=== PATIENT | female | born 1965 | race Two or more races ===

== ENCOUNTER 2020-12-31 04:27 | Day surgery (SDC) | payer OTHER ==
[2020-12-31 08:25] VITALS: BMI 31.2
[2020-12-31] MEDS ORDERED: LIDOCAINE HCL 1%, 10 MG/ML (20ML VIAL) ONE (10:06)
[2020-12-31] MEDS ORDERED: PROPOFOL 20 ML ONE (11:17)
[2020-12-31] MEDS ORDERED: MIDAZOLAM HCL 2 MG/2 ML SINGLE DOSE VIAL ONE (11:17)
[2020-12-31] MEDS ORDERED: ceFAZolin SODIUM 1 GM VIAL IVPB ONE (11:25)
[2020-12-31] MEDS ORDERED: LIDOCAINE HCL 1%, 10 MG/ML (20ML VIAL) NR ONE ×2 (11:31)
[2020-12-31] MEDS ORDERED: EPHEDRINE SULFATE/0.9% NACL/PF 50 MG/10 ML SYRINGE NR ONE (11:32)
[2020-12-31] MEDS ORDERED: oxyCODONE HCL 5 MG TABLET PO PRN (13:15)
[2020-12-31] MEDS ORDERED: ONDANSETRON 4 MG/2 ML VIAL IVPUSH PRN (13:15)
[2020-12-31] MEDS ORDERED: LACTATED RINGERS SOLUTION 1,000 ML IV SCH (13:15)
[2020-12-31 14:18] VITALS: PULSE 87; TEMP 97.7
[2020-12-31 14:35] VITALS: BP 122/78
== END 2020-12-31 14:37 | disposition home or self-care (01) ==
LOC: JASU-SURG 04:27
PROVIDERS: ATTEND Surgery
PROC: 0HBT0ZZ Excision of Right Breast, Open Approach (ICD-10-PCS; principal; 2020-12-31 11:00)
DX: N64.89 Other specified disorders of breast (principal); N60.11 Diffuse cystic mastopathy of right breast
CPT/HCPCS: 19281; 36415; 76098-TC-FY; 85032; 88307-TC; 94760